=== PATIENT | female | born 1965 | race Caucasian/White ===

== ENCOUNTER 2021-09-27 15:03 | Emergency (ER) | payer OTHER ==
[~2021-09-27] VITALS: Ht 157.5 cm; Wt 78.0 kg
[2021-09-27] MEDS ORDERED: OMEPRAZOLE40 MG PO (15:31)
[2021-09-27] MEDS ORDERED: NAPROSYN500 MG PO (16:35)
[2021-09-27] MEDS ORDERED: DOXYCYCLINE HY100 MG PO (16:35)
== END 2021-09-27 17:07 | disposition home or self-care (01) ==
LOC: ED 15:03
DX: L03.115 Cellulitis of right lower limb (principal); I80.3 Phlebitis and thrombophlebitis of lower extremities, unspecified; K21.9 Gastro-esophageal reflux disease without esophagitis; Z88.0 Allergy status to penicillin; Z79.899 Other long term (current) drug therapy
CPT/HCPCS: 99283